=== PATIENT | male | born 1985 | race African-American/Black ===

== ENCOUNTER 2024-06-29 11:52 | Inpatient (IN) | payer OTHER ==
[2024-06-29 13:07] VITALS: BMI 23.5
[2024-06-29] MEDS ORDERED: ONDANSETRON *ODT* 4 MG TABLET SL PRN (13:53)
[2024-06-29] MEDS ORDERED: BISMUTH SUBSALICYLATE 524 MG/30 ML PO PRN (13:53)
[2024-06-29] MEDS ORDERED: LOPERAMIDE HCL 2 MG CAPSULE PO PRN (13:53)
[2024-06-29] MEDS ORDERED: BENZOCAINE/MENTHOL (CHLORASEPTIC ) LOZENGE MM PRN (13:53)
[2024-06-29] MEDS ORDERED: POLYETHYLENE GLYCOL (HEALTHYLAX) 3350 17 GM PACKET PO PRN (13:53)
[2024-06-29] MEDS ORDERED: MAGNESIUM HYDROX 2400MG/30ML ORAL SUSPENSION 30 ML CUP PO PRN (13:53)
[2024-06-29] MEDS ORDERED: MAG HYDROX/AL HYDROX/SIMETH 30 ML UNIT-DOSE CUP PO PRN (13:53)
[2024-06-29] MEDS ORDERED: DICYCLOMINE HCL 10 MG CAPSULE PO PRN (13:53)
[2024-06-29] MEDS ORDERED: guaiFENesin 600 MG TABLET.ER (FP) PO PRN (13:53)
[2024-06-29] MEDS ORDERED: chlordiazePOXIDE HCL 25 MG CAPSULE PO PRN (13:53)
[2024-06-29] MEDS ORDERED: ACETAMINOPHEN 325 MG TABLET (FP) PO PRN (13:53)
[2024-06-29] MEDS ORDERED: IBUPROFEN 400 MG TABLET (FP) PO PRN (13:53)
[2024-06-29] MEDS ORDERED: NALOXONE (NARCAN) HCL 4 MG/0.1 ML SPRAY NS PRN (13:53)
[2024-06-29] MEDS ORDERED: IBUPROFEN 600 MG TABLET (FP) PO PRN (13:53)
[2024-06-29] MEDS ORDERED: BENZONATATE 200 MG CAPSULE PO PRN (13:53)
[2024-06-29] MEDS: chlordiazePOXIDE HCL 25 MG CAPSULE PO SCH (17:29)
[2024-06-29] MEDS: NICOTINE 14 MG/24 HOURS TOPICAL PATCH TD ONE (17:29)
[2024-06-29] MEDS: THIAMINE 100 MG TABLET PO SCH (22:03)
[2024-06-29] MEDS: MELATONIN 5 MG TABLETS PO SCH (22:03)
[2024-06-29] MEDS: hydrOXYzine PAMOATE 25 MG CAPSULE (FP) PO PRN (23:00)
[2024-06-29] MEDS: METHOCARBAMOL 500 MG TABLET PO PRN (23:00)
[2024-06-30 08:33] LABS: CHLORIDE 111 mmol/L (98-107); POTASSIUM 4.1 mmol/L (3.5-5.1); SODIUM 143 mmol/L (136-145)
[2024-06-30 08:39] LABS: HEMOGLOBIN 14.7 GM/dL (11.7-16.9); MCH 33.6 pg (25.7-33.7); MCHC 33.5 g/dl (32.0-35.9); MEAN CELL VOLUME 100.5 fl (80-96); PLATELET COUNT 289 10^3/uL (134-434); RBC 4.37 M/mm3 (4.00-5.60); RDW 13.2 % (11.9-15.9); WHITE BLOOD COUNT 5.8 K/mm3 (4.0-10.0)
[2024-06-30 08:40] LABS: ALBUMIN 3.4 g/dl (3.4-5.0); ANION GAP 4 mmol/L (4-13); BLOOD UREA NITROGEN 11.3 mg/dL (7-18); CALCIUM 8.8 mg/dL (8.5-10.1); CO2 28 mmol/L (21-32)
[2024-06-30 08:41] LABS: GLUCOSE,RANDOM 117 mg/dL (74-106)
[2024-06-30 08:43] LABS: SGOT/AST 18 U/L (15-37); SGPT/ALT 39 U/L (13-61)
[2024-06-30 08:44] LABS: BILIRUBIN,TOTAL 0.4 mg/dL (0.2-1); TOT PROT 6.3 g/dl (6.4-8.2)
[2024-06-30 08:46] LABS: ALK PHOS 37 U/L (45-117)
[2024-06-30 09:05] LABS: SYPHILIS W/ RPR CONF REACTIVE (NONREACTIVE)
[2024-06-30 09:32] LABS: HIV INTERPRETATION NEGATIVE (NEGATIVE)
[2024-06-30] MEDS: PRENATAL VITAMINS W/ FOLIC ACID TABLET (FP) PO SCH (10:33)
[2024-06-30] MEDS: NICOTINE 21 MG/24 HOURS TOPICAL PATCH TD SCH (10:33)
[2024-06-30] MEDS: MELATONIN 5 MG TABLETS PO SCH (22:14)
[2024-06-30] MEDS: hydrOXYzine PAMOATE 25 MG CAPSULE (FP) PO PRN (22:14)
[2024-07-01] MEDS: chlordiazePOXIDE HCL 25 MG CAPSULE PO SCH (05:25)
[2024-07-01 21:18] VITALS: BP 102/60; PULSE 82; RESP 18; TEMP 98.2
[2024-07-02] MEDS ORDERED: chlordiazePOXIDE HCL 10 MG CAPSULE PO PRN
[2024-07-02] MEDS ORDERED: chlordiazePOXIDE HCL 10 MG CAPSULE PO SCH (05:00)
[2024-07-02] MEDS ORDERED: diazePAM 5 MG TABLET PO ONE (06:00)
[2024-07-02] MEDS ORDERED: diazePAM 5 MG TABLET PO PRN (08:00)
[2024-07-03] MEDS ORDERED: chlordiazePOXIDE HCL 10 MG CAPSULE PO SCH (05:00)
[2024-07-04] MEDS ORDERED: chlordiazePOXIDE HCL 10 MG CAPSULE PO ONE (05:00)
== END 2024-07-01 22:18 | disposition home or self-care (01) | DRG 775 ==
LOC: YASAS 11:52 → Y3N 14:38
PROVIDERS: ADMIT Allergy & Immunology; ATTEND Surgery
PROC: HZ2ZZZZ Detoxification Services for Substance Abuse Treatment (ICD-10-PCS; principal; 2024-06-29)
DX: F10.230 Alcohol dependence with withdrawal, uncomplicated (principal); F10.282 Alcohol dependence with alcohol-induced sleep disorder; F10.24 Alcohol dependence with alcohol-induced mood disorder; F12.20 Cannabis dependence, uncomplicated; F17.210 Nicotine dependence, cigarettes, uncomplicated; Z56.0 Unemployment, unspecified; Z59.01 Sheltered homelessness
CPT/HCPCS: 36415; 80053; 80307; 85027; 86593; 86780; 86803; 87389; 93005; 93010